=== PATIENT | male | born 1990 | race Caucasian/White ===

== ENCOUNTER 2020-11-07 10:55 | Emergency (ER) | payer OTHER ==
[~2020-11-07] VITALS: Ht 180.3 cm; Wt 77.1 kg
--- NOTE | 2020-11-07 10:57 | NUR ---
[email or web address], medical screening exam in progress
[2020-11-07] MEDS ORDERED: KETOROLAC TROMETHAMINE 60 MG INJ IM ONE ×2 (11:15→11:19)
--- NOTE | 2020-11-07 11:15 | NUR ---
Patient refused IM Ketorolac, notified.
--- NOTE | 2020-11-07 12:14 | NUR ---
Patient is resting comfortably on gurney with eyes closed, pending results and disposition.
[2020-11-07 12:17] LABS: HEMATOCRIT 34.4 % (36.7-47.1); MEAN CORPUSCULAR VOLUME 84.3 fL (73.0-96.2); PLATELET COUNT (AUTO) 302 K/uL (152-348)
--- NOTE | 2020-11-07 12:24 | NUR ---
Patient said that his name is not Jarrett Washington. ER registration staff Capo notified.
[2020-11-07 12:30] LABS: ALANINE AMINOTRANSFERASE 22 U/L (16-63); ALKALINE PHOSPHATASE 72 U/L (50-136); ASPARTATE AMINOTRANSFERASE 17 U/L (15-37); BILIRUBIN,TOTAL 0.5 mg/dL (0.2-1.0); CARBON DIOXIDE 29 mmol/L (21-32); CHLORIDE 103 mmol/L (98-107); CREATINE KINASE, TOTAL 128 U/L (39-308); CREATININE 0.5 mg/dL (0.6-1.3); GLUCOSE 117 mg/dL (74-106); POTASSIUM 3.3 mmol/L (3.5-5.1); TOTAL PROTEIN, SERUM 6.5 g/dL (6.4-8.2); UREA NITROGEN, BLOOD 12 mg/dL (7-18)
--- NOTE | 2020-11-07 12:58 | NUR ---
Patient moved from room 3 to ER room 4A, still for disposition, no acute change in condition seen.
--- NOTE | 2020-11-07 13:11 | NUR ---
For discharge, pending written discharge papers from Dr Cannon
[2020-11-07] MEDS ORDERED: IBUP-1955 PO (14:00)
--- NOTE | 2020-11-07 14:23 | NUR ---
Patient was given written and verbal discharge instructions. Patient verbalized understanding & compliance of instructions. Patient is ambulatory with steady gait. Patient refused offer of penitentiary placement. Patient was also given a list of available shelters in surrounding area.
== END 2020-11-07 14:34 | disposition home or self-care (01) ==
LOC: ER 10:55
DX: M79.605 Pain in left leg (principal); R22.42 Localized swelling, mass and lump, left lower limb; Z59.0 Homelessness
CPT/HCPCS: 36415; 76881; 85025; A4663; J1885